=== PATIENT | female | born 1975 | race Caucasian/White ===

== ENCOUNTER 2023-10-23 16:06 | Outpatient (OUT) | payer OTHER, SELFPAY ==
--- NOTE | 2023-10-23 | MM_ITS ---
Patient Name: ASHLEY REYES MR#: [id number] : 1975 Exam Date: 10/23/2023 Ordering Doctor: DR Zac Cuello . RADIOLOGY REPORT PROCEDURE: MM TOMOSYNTHESIS SCREENING BI COMPARISON: MG MAMM SCREEN CHIARA W CAD, 08/05/2019. INDICATIONS: screening mamm Calculator Name NCI Breast Cancer Risk Assessment Tool 5 Year Breast Cancer Risk 0.90% Lifetime Breast Cancer Risk 8.90% Personal Breast Cancer No Personal Ovarian Cancer No Treatments None Family Cancers None LOCATION: [facility] BREAST COMPOSITION: Scattered areas fibroglandular density. FINDINGS: DIAGNOSTIC CATEGORY 1--NEGATIVE. NO CHANGE FROM COMPARISON ASSESSMENT. Scattered benign-appearing nodules are present. Scattered benign-appearing calcifications are present. Scattered benign-appearing lymph nodes are present. RIGHT BREAST: No significant suspicious finding. LEFT BREAST: No significant suspicious finding. RECOMMENDATIONS: ROUTINE MAMMOGRAM AND CLINICAL EVALUATION IN 12 MONTHS. PLEASE NOTE: A NORMAL MAMMOGRAM DOES NOT EXCLUDE THE POSSIBILITY OF BREAST CANCER. A CLINICALLY SUSPICIOUS PALPABLE LUMP SHOULD BE BIOPSIED. Dictated by: Reji Grimm MD on 10/24/2023 at 09:31 Approved by: Reji Grimm MD on 10/24/2023 at 09:32
== END 2023-10-23 16:07 | disposition home or self-care (01) ==
LOC: MAMMO 16:07
PROVIDERS: PCP Family Medicine; Visit Provider Family Medicine
DX: Z12.31 Encounter for screening mammogram for malignant neoplasm of breast (principal)
CPT/HCPCS: 77063; 77067

== ENCOUNTER 2023-12-15 08:05 | Outpatient (OUT) | payer OTHER, SELFPAY ==
--- NOTE | 2023-12-15 | US_ITS ---
The [address] [address] Patient Name: ASHLEY REYES MRN: [id number] date: 1975 Sex: F Assigned Patient Location: [place] Current Patient Location: [place] Accession/Order Number: [id number] Exam Date: 12/15/2023 08:12 Report Date: 12/15/2023 10:19 At the request of: SEBASTIAN PULLIAM Procedure: US renal bladder EXAM: US renal bladder HISTORY: . Urinary tract infection N39.0 . COMPARISON: None. TECHNIQUE: Carlin scale and color imaging was performed FINDINGS: Scanning of the right kidney demonstrates right kidney to measure 10.7 x 3.9 x 4.6 cm. Color-flow is noted. There is a 1.2 x 1.1 cm simple cyst involving upper pole of the right kidney. No hydronephrosis is noted. Left kidney measures 10.7 x 4.5 x 4.7 cm. Color-flow is noted. No solid renal cortical masses or hydronephrosis is noted. The bladder was incompletely distended with a volume of 112 mL. Grossly no masses are noted. Ureteral jets were noted. No post void residual was noted. US/US renal bladder IMPRESSION: 1. Normal-appearing ultrasound of the kidneys. 2. No masses noted within the bladder. Bilateral ureteral jets were noted. 3. No post void residual. Electronically authenticated by: BOUCHRA LUJAN Date: 12/15/2023 10:19
--- OUTSIDE RECORDS SUMMARY | 2023-12-15 08:07 | XMS_ITS | CCD ---
Author Name Unknown Address [address] [place] [address] Organization [facility] Care Team Providers Care Boom Stick Man Name Role Phone Sebastian Cuello MD Primary Care Provider Sebastian Cuello MD Unavailable DR SEBASTIAN CUELLO Admitting Unavailable DR SEBASTIAN CUELLO Attending Unavailable DR SEBASTIAN CUELLO Primary Care Unavailable Sebasitan Cuello MD Primary Care Provider [phone] Sebastian Cuello MD Unavailable SEBASTIAN CUELLO Primary Care Unavailable SEBASTIAN CUELLO Referring Unavailable ALON ROCA Attending Unavailable SEBASTIAN CUELLO Primary Care Unavailable ALON ROCA Referring Unavailable Allergies Allergy Classification Reported Allergen(s) Allergy Type Date of Onset Reaction(s) Facility (2 sources) Penicillins; Translations: [PENICILLINS] Drug Allergy 08-21-2019 [facility] Work Phone: (4 sources) Penicillins Drug Allergy 08-21-2019 [facility] Work Phone: (1 source) Penicillin Drug Allergy [facility] Repository Medications Completed/Discontinued Medications Medication Drug Class(es) Dates Sig (Normalized) Sig (Original) acetaminophen 325 mg oral tablet (5 sources) take 2 tablets by mouth every four hours as needed acetaminophen (TYLENOL) 325 mg tablet Take 650 mg by mouth every 4 hours as needed. 0 Active Comment on above: Take 650 mg by mouth every 4 hours as needed. [id number] 200 actuat albuterol 0.09 mg/actuat metered dose inhaler (5 sources) beta2-Adrenergic Agonist Start: 02-20-2020 take 2 puff(s) by mouth four times daily albuterol HFA (PROVENTIL HFA, VENTOLIN HFA) 90 mcg/actuation inhaler inhale 2 puffs by mouth and INTO THE LUNGS four times a day if ne... (REFER TO PRESCRIPTION NOTES). 0 02/20/2020 Active Comment on above: inhale 2 puffs by mo uth and INTO THE LUNGS four times a day if ne... (REFER TO PRESCRIPTION NOTES). aspirin 81 mg delayed release oral tablet (5 sources) Platelet Aggregation Inhibitor, Nonsteroidal Anti-inflammatory Drug aspirin, enteric coated (ASPIRIN, ENTERIC COATED) 81 mg EC tablet Take 81 mg by mouth. 0 Active Comment on above: Take 81 mg by mouth. atorvastatin 80 mg oral tablet (1 source) HMG-CoA Reductase Inhibitor Start: 08-23-2019 End: 01-18-2021 atorvastatin (LIPITOR) 80 mg tablet Take 80 mg by mouth. 0 08/23/2019 01/18/2021 Discontinued (Side Effects) Comment on above: Take 80 mg by mouth. metoprolol tartrate 25 mg oral tablet (1 source) beta-Adrenergic Alva Start: 01-22-2021 End: 03-03-2022 take 0.5 tablet by mouth every twelve hours metoprolol tartrate, short acting, (LOPRESSOR) 25 mg tablet Take 0.5 tablets by mouth every 12 hours. 60 tablet 2 01/22/2021 03/03/2022 Discontinued (Discontinued by Patient) Comment on above: Take 0.5 tablets by mouth every 12 hours. perflutren lipid microspheres (DEFINITY) 1.1 mg/mL injection (to be provided with echo procedure) (1 source) Start: 08-14-2020 End: 01-18-2021 perflutren lipid microspheres (DEFINITY) 1.1 mg/mL injection (to be provided with echo procedure) Inject 1.3 mL intravenously as needed for up to 1 dose. Instructions Administration Instructions: If no IV access, insert saline lock prior to administering contrast. Discontinue saline lock post exam. If patient has central line or IVAD, may access for administration according to line specific nursing protocol. Once exam is complete, flush line and de-access per line specific nursing protocol. Diluted IV Bolus: Dilute 1.3 ml of Definity with 8.7 ml of preservative-free saline 1.3 mL 0 08/14/2020 01/18/2021 Discontinued (Course of therapy completed) Comment on above: Inject 1.3 mL intrav enously as needed for up to 1 dose. Instructions Administration Instructions: If no IV access, insert saline lock prior to administering contrast. Discontinue saline lock post exam. If patient has central line or IVAD, may access for administration according to line specific nursing protocol. Once exam is complete, flush line and de-access per line specific nursing protocol. Diluted IV Bolus: Dilute 1.3 ml of Definity with 8.7 ml of preservative-free saline pravastatin sodium 20 mg oral tablet (1 source) HMG-CoA Reductase Inhibitor take 1 tablet by mouth once daily pravastatin (PRAVACHOL) 20 mg tablet Take 20 mg by mouth once daily. 0 Active Comment on above: Take 20 mg by mouth once daily. pregabalin 50 mg oral capsule (5 sources) take 2 tablets by mouth in the evening pregabalin (LYRICA) 50 mg capsule Take 50 mg by mouth. 1 TAB IN THE AM 2 TABS IN THE pm 0 Active Comment on above: Take 50 mg by mouth. 1 TAB IN THE AM 2 TABS IN THE pm rosuvastatin calcium 5 mg oral tablet (3 sources) HMG-CoA Reductase Inhibitor take 4 tablets by mouth once daily rosuvastatin (CRESTOR) 5 mg tablet Take 20 mg by mouth once daily. 0 Active Comment on above: Take 20 mg by mouth once daily. 125 ml sodium chloride 9 mg/ml prefilled syringe (1 source) Start: 08-05-2020 End: 01-18-2021 sodium chloride 0.9 %, flush, (BD POSIFLUSH) syringe Inject 2-10 mL intravenously as directed. For Echo procedure 10 mL 0 08/05/2020 01/18/2021 Discontinued (Course of therapy completed) Comment on above: Inject 2-10 mL intra venously as directed. For Echo procedure tiZANidine 4 mg oral tablet (1 source) Central alpha-2 Adrenergic Agonist take 1 tablet by mouth every six hours as needed tiZANidine (ZANAFLEX) 4 mg tablet Take 4 mg by mouth every 6 hours as needed. 0 Active Comment on above: Take 4 mg by mouth e very 6 hours as needed. Problems Active Problems Problem Classification Problem Date Documented Da te Episodic/Chronic Acute cerebrovascular disease (7 sources) Cerebral infarction; Translations: [Cerebral infarction due to unspecified occlusion or stenosis of unspecified carotid artery] Onset: 06-15-2020 06-15-2020 Chronic Cardiac dysrhythmias (6 sources) Cardiac arrhythmia; Translations: [Cardiac arrhythmia, unspecified] Onset: 06-15-2020 06-15-2020 Chronic Occlusion or stenosis of precerebral arteries (9 sources) Right carotid artery occlusion; Translations: [Occlusion and stenosis of right carotid artery] Onset: 01-10-2021 01-10-2021 Chronic Past or Other Problems Problem Classification Problem Date Documented Date Episodic/Chronic Other circulatory disease (5 sources) History of cerebrovascular accident; Translations: [Personal history of transient ischemic attack (TIA), and cerebral infarction without residual deficits] Onset: 01-10-2021 01-10-2021 Episodic Residual codes; unclassified (5 sources) Tobacco user; Translations: [Tobacco use] Onset: 06-15-2020 01-22-2021 Episodic Results Test Name Value Interpretation Reference Range Facility [facility] 11-21-2023 CNPN Telephone (4CQ) ---- JANIEASHLEY MOORE ([id number]) 1975 F Date Time Provider Department 11/21/23 SEBASTIAN CUELLO 4CQ During your visit today, we recorded the following information about you: Alexia Wilson 11/21/2023 11:12 AM Signed Reason for call: Ms Fairbanks called and she would like to schedule an appointment with Dr elizabeth Cross and cell number: [phone] Diagnosis:CAROTID STENOSIS Mary Grace Justin Haley Fletcher 11/26/2023 11:17 AM Signed Lvm to call back to schedule Allergies As of Date: 11/21/2023 Noted Allergy Reaction PENICILLINS 08/21/2019 4 - Hives Comments: As a child, unsure currently Date Reviewed: 03/07/2023 Reviewed by: Greer Trejo LPN - Fully Assessed Reason for Visit: Appointment [186] Prescriptions as of 11/26/2023 - pravastatin (PRAVACHOL) 20 mg tablet Take 20 mg by mouth once daily. - tiZANidine (ZANAFLEX) 4 mg tablet Take 4 mg by mouth every 6 hours as needed. - rosuvastatin (CRESTOR) 5 mg tablet Take 20 mg by mouth once daily. - acetaminophen (TYLENOL) 325 mg tablet Take 650 mg by mouth every 4 hours as needed. - albuterol HFA (PROVENTIL HFA, VENTOLIN HFA) 90 mcg/actuation inhaler inhale 2 puffs by mouth and INTO THE LUNGS four times a day if ne... (REFER TO PRESCRIPTION NOTES). - aspirin, enteric coated (ASPIRIN, ENTERIC COATED) 81 mg EC tablet Take 81 mg by mouth. - pregabalin (LYRICA) 50 mg capsule Take 50 mg by mouth. 1 TAB IN THE AM 2 TABS IN THE pm Problem List As Of Date 11/21/2023 Noted Resolved Cerebral infarction due to unspecified occlusio*06/15/2020 Cardiac arrhythmia [I49.9] 06/15/2020 Tobacco abuse [Z72.0] 06/15/2020 Stenosis of left carotid artery [I65.22] 01/10/2021 02/21/2021 Right internal carotid occlusion [I65.21] 01/10/2021 History of arterial ischemic stroke [Z86.73] 01/10/2021 Carotid artery stenosis [I65.29] 01/20/2021 02/21/2021 History of left-sided carotid endarterectomy [Z*02/21/2021 Encounter Status:Closed by ALEXIA WILSON on 11/21/23 [facility] Mika 03-07-2023 CNOV Office Visit (MARIA ESTHER) ---- ASHLEY FAIRBANKS ([id number]) 1975 F Date Time Provider Department 03/07/23 12:00 PM ALON ROCA During your visit today, we recorded the following information about you: Pulse Blood pressure 67/minute 139/78 Alon Roca MD 03/07/2023 4:46 PM Signed [facility] [place] DEPARTMENT OF VASCULAR SURGERY OUTPATIENT VISIT DATE March 07, 2023 OUTPATIENT VISIT TYPE ESTABLISHED SERVICE DATE: 03/07/2023 SERVICE TIME: 12:07 PM PRIMARY CARE PHYSICIAN: Sebastian Cuello MD HISTORY OF PRESENT ILLNESS: Ms. Fairbanks is a 47 year old female who presents today for a vascular surgery follow-up visit s/p left carotid eversion endarterectomy on 01/20/21. Patient reports mild discomfort at incision and tension headaches but otherwise feeling well. Denies any signs/symptoms of TIA/CVA. Still smoking 1 pack/week but has cut down from 1ppd. 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 Vaping Use Vaping Use: Never used Substance Use Topics Alcohol use: Not Currently Drug use: Never MEDICATIONS: pravastatin (PRAVACHOL) 20 mg tablet Take 20 mg by mouth once daily. tiZANidine (ZANAFLEX) 4 mg tablet Take 4 mg by mouth every 6 hours as needed. acetaminophen (TYLENOL) 325 mg tablet Take 650 mg by mouth every 4 hours as needed. albuterol HFA (PROVENTIL HFA, VENTOLIN HFA) 90 mcg/actuation inhaler inhale 2 puffs by mouth and INTO THE LUNGS four times a day if ne... (REFER TO PRESCRIPTION NOTES). aspirin, enteric coated (ASPIRIN, ENTERIC COATED) 81 mg EC tablet Take 81 mg by mouth. pregabalin (LYRICA) 50 mg capsule Take 50 mg by mouth. 1 TAB IN THE AM 2 TABS IN THE pm rosuvastatin (CRESTOR) 5 mg tablet Take 20 mg by mouth once daily. ALLERGIES: ALLERGIES Allergen Reactions Penicillins Hives As a child, unsure currently PHYSICAL EXAM: BP 139/78 Pulse 67 LMP 11/22/2020 (Approximate) General: Alert and oriented Integumentary: Normal color, no rash, no lesions. HEENT: No carotid bruits Cardiovascular: Normal S1 AND S2, no rubs, murmurs or gallops. No JVD., Pulse regular. Lungs: Normal breath sounds, no wheezes or crackles. Abdomen: Soft, non-tender, no rigidity. Extremities: No deformity, no edema or tenderness, no joint swelling or clubbing. Neurological: Normal cognition and motor skills. Vascular: Femoral Pulse Right: Normal - Left: Normal Diagnostic tests reviewed for today's visit: 03/07/23 Carotid US: FINDINGS -------- RIGHT SIDE Common carotid artery: Origin: PSV: 118 cm/s. EDV: 14 cm/s. Proximal: PSV: 126 cm/s. EDV: 11 cm/s. Mid: PSV: 103 cm/s. EDV: 17 cm/s. Distal: PSV: 61 cm/s. EDV: 13 cm/s. Internal carotid artery: Origin: PSV: 24 cm/s. EDV: 0 cm/s. Proximal: PSV: 0 cm/s. EDV: 0 cm/s. Mid: PSV: 0 cm/s. EDV: 0 cm/s. Distal: PSV: 0 cm/s. EDV: 0 cm/s. ICA/CCA Ratio: 0.4 External carotid artery: Proximal: PSV: 124 cm/s. EDV: 24 cm/s. Subclavian artery: Proximal: PSV: 159 cm/s. EDV: 16 cm/s. Innominate artery: PSV: 169 cm/s. EDV: 20 cm/s. Vertebral artery: PSV: 67 cm/s. EDV: 24 cm/s. LEFT SIDE Common carotid artery: Proximal: PSV: 147 cm/s. EDV: 43 cm/s. Mid: PSV: 100 cm/s. EDV: 33 cm/s. Distal: PSV: 101 cm/s. EDV: 32 cm/s. Internal carotid artery: Origin: PSV: 80 cm/s. EDV: 24 cm/s. Proximal: PSV: 90 cm/s. EDV: 24 cm/s. Mid: PSV: 183 cm/s. EDV: 71 cm/s. Distal: PSV: 142 cm/s. EDV: 45 cm/s. ICA/CCA Ratio: 1.8 External carotid artery: Proximal: PSV: 77 cm/s. EDV: 17 cm/s. Subclavian artery: Proximal: PSV: 130 cm/s. EDV: 0 cm/s. Vertebral artery: PSV: 78 cm/s. EDV: 25 cm/s. IMPRESSION Compared to prior study of 03/03/2022, No significant change. RIGHT SIDE Internal carotid artery: Occluded. Known occlusion proximal to distal. Vertebral artery: Patent and antegrade flow noted. LEFT SIDE Internal carotid artery: Elevated velocities noted but no plaque is visualized; likely normal study. Eversion endarterectomy site is widely patent. Elevated velocities noted at mid/distal vessel (more content not included)... Normal [facility] CAROTID ARTERIES [facility] 03-07-2023 US CAROTID ARTERIES [facility] Non-Invasive Vascular Laboratory [facility] F30 Carotid Duplex Bilateral/Complete Date of service/time: 03/07/2023 10:59:55 AM Name: ASHLEY FAIRBANKS Date of : 1975 Age: 47 years Gender: F Clinical Indication Follow-up study on a patient with known carotid disease and status post left carotid eversion endarterectomy 01/20/2021. TECHNIQUE -------- A carotid duplex ultrasound examination was performed, including grayscale imaging and color Doppler and spectral Doppler examination of the below mentioned arteries. FINDINGS -------- RIGHT SIDE Common carotid artery: Origin: PSV: 118 cm/s. EDV: 14 cm/s. Proximal: PSV: 126 cm/s. EDV: 11 cm/s. Mid: PSV: 103 cm/s. EDV: 17 cm/s. Distal: PSV: 61 cm/s. EDV: 13 cm/s. Internal carotid artery: Origin: PSV: 24 cm/s. EDV: 0 cm/s. Proximal: PSV: 0 cm/s. EDV: 0 cm/s. Mid: PSV: 0 cm/s. EDV: 0 cm/s. Distal: PSV: 0 cm/s. EDV: 0 cm/s. ICA/CCA Ratio: 0.4 External carotid artery: Proximal: PSV: 124 cm/s. EDV: 24 cm/s. Subclavian artery: Proximal: PSV: 159 cm/s. EDV: 16 cm/s. Innominate artery: PSV: 169 cm/s. EDV: 20 cm/s. Vertebral artery: PSV: 67 cm/s. EDV: 24 cm/s. LEFT SIDE Common carotid artery: Proximal: PSV: 147 cm/s. EDV: 43 cm/s. Mid: PSV: 100 cm/s. EDV: 33 cm/s. Distal: PSV: 101 cm/s. EDV: 32 cm/s. Internal carotid artery: Origin: PSV: 80 cm/s. EDV: 24 cm/s. Proximal: PSV: 90 cm/s. EDV: 24 cm/s. Mid: PSV: 183 cm/s. EDV: 71 cm/s. Distal: PSV: 142 cm/s. EDV: 45 cm/s. ICA/CCA Ratio: 1.8 External carotid artery: Proximal: PSV: 77 cm/s. EDV: 17 cm/s. Subclavian artery: Proximal: PSV: 130 cm/s. EDV: 0 cm/s. Vertebral artery: PSV: 78 cm/s. EDV: 25 cm/s. IMPRESSION Compared to prior study of 03/03/2022, No significant change. RIGHT SIDE Internal carotid artery: Occluded. Known occlusion proximal to distal. Vertebral artery: Patent and antegrade flow noted. LEFT SIDE Internal carotid artery: Elevated velocities noted but no plaque is visualized; likely normal study. Eversion endarterectomy site is widely patent. Elevated velocities noted at mid/distal vessel. Vertebral artery: Patent and antegrade flow noted. Technologist: Selena Lynn RVT Ordering physician: ALON ROCA Interpreting physician: Samira Larkin MD, RPBRENDON Final CC [employer] : [id number] See Link below for Image Normal [facility] COVID-19 Antigenon 2 COVID-19 Antigen Healthcare Worker?: N María Elena Reference -- María Elena Reference Negative María Elena Blank -- COVID19 Pos Results Positive results will only be called to COVID19 Det Results Providers for the following groups of patients: COVID19 Pos Results Pre-Surgical Testing, Emergency Room, and Inpatients. María Elena Blank -- SARS-CoV+SARS-CoV-2 (COVID-19) Ag [Presence] in Respiratory specimen by Rapid immunoassay Positive for SARS Antigen by ILIANA María Elena Disclaimer The María Elena SARS Antigen ILIANA does not differentiate María Elena Disclaimer between SARS-CoV and SARS-CoV-2. COVID19 Blank Space María Elena Disclaimer This test was developed and its performance María Elena Disclaimer characteristic determined by [employer] and María Elena Disclaimer validated at [facility]. This María Elena Disclaimer test has not been FDA cleared or approved. This María Elena Disclaimer test has been authorized by FDA under an Emergency Use María Elena Disclaimer Authorization (EUA). This test has been validated María Elena Disclaimer in accordance with the FDA's Guidance Document (Policy María Elena Disclaimer for Diagnostics Testing in Laboratories Certified to María Elena Disclaimer Perform High Complexity Testing under CLIA prior to María Elena Disclaimer Emergency Use Authorization for Coronavirus María Elena Disclaimer iseas during the Public Health Emergency) María Elena Disclaimer issued on February 19, 2020. This test is only authorized María Elena Disclaimer for the duration of time the declaration that María Elena Disclaimer circumstances exist justifying the authorization of María Elena Disclaimer the emergency use of in vitro diagnostic tests for María Elena Disclaimer detection of SARS-CoV-2 virus and/or diagnosis of María Elena Disclaimer COVID-19 infection under section 564(b)(1) of the María Elena Disclaimer Act, 21 U.S.C. 360bbb-3(b)(1), unless the María Elena Disclaimer authorization is terminated or revoked sooner. PERFORMED BY: [place] [phone] PATHOLOGIST DEBT MANAGEMENT COUNSELOR ANTWAN HART M.D. [facility] Comment on above: Performed By: #### S OFIAPOS, COVID-19 MARÍA ELENA #### [facility] [address] [place] [address] María Elena Ag Positiveon 11-27-19 22 María Elena Ag Positive Positive Critically abnormal Negative [facility] Comment on above: Result Comment: This is a duplicate María Elena SARS Antigen (ILIANA) result to be used for statistical tracking purpose only. PERFORMED BY: [place] [address] PATHOLOGIST DEBT MANAGEMENT COUNSELOR ANTWAN HART M.D. Performed By: #### S OFIAPOS, COVID-19 MARÍA ELENA #### [facility] [address] [place] [address] No Panel Informationon 01-13 [facility] Vital Signs Date Time Vital Sign Value Performing Clinician Mayra mclean 03-07-2023 11:52-0400 Diastolic blood pressure 78 mm[Hg] Alon Roca MD Work Phone: [facility] 03-07-2023 11:52-0400 Heart rate 67 /min Alon Roca MD Work Phone: [facility] 03-07-2023 11:52-0400 Systolic blood pressure 139 mm[Hg] Alon Roca MD Work Phone: [facility] 03-03-2022 11:55-0400 Body weight 77.11 kg Levi Santos MD Work Phone: [facility] 03-03-2022 11:55-0400 Diastolic blood pressure 63 mm[Hg] Levi Santos MD Work Phone: [facility] 03-03-2022 11:55-0400 Heart rate 64 /min Levi Santos MD Work Phone: [facility] 03-03-2022 11:55-0400 Systolic blood pressure 127 mm[Hg] Levi Santos MD Work Phone: [facility] Encounters Encounter Date Encounter Type Care Provider Facility Start: 03-07-2023 End: 03-07-2023 ambulatory SEBASTIAN CUELLO Facility:[facility] Start: 03-07-2023 End: 03-07-2023 Patient encounter procedure Alon Roca MD Work Phone: Vascular Surg Dept Comment on above: Bilateral carotid ar coral stenosis (Primary Dx) Start: 07-10-2022 Orders Only Alon major MD Work Phone: Vascular Surg Dept Comment on above: Cerebral infarction due to unspecified occlusion or stenosis of unspecified carotid artery (HCC) (Primary Dx); Bilateral carotid artery stenosis Start: 05-25-[address] SEBASTIAN CUELLO Facility : Start: 03-03-2022 End: 03-03-2022 Patient encounter procedure Levi Santos MD Work Phone: Vascular Surg Dept Comment on above: History of left-side d carotid endarterectomy (Primary Dx) Start: 01-13-2021 End: 01-13-2021 Patient encounter status Injection Rej Work Phone: [facility] Start: 01-13-2021 End: 01-13-2021 Subsequent hospital visit by physician Scan [facility] Rej Work Phone: Nuclear Medicine Comment on above: Encounter for prepro cedural cardiovascular examination [Z01.810] Procedures Date Procedure Procedure Detail Performing Clinician Start: 02-21-2021 History of carotid endarterectomy History of left-sided carotid endarterectomy Levi Santos MD Work Phone: Start: 01-13-2021 Myocardial spect multiple studies Brianna Schrader COATING ENGINEER.TORCH STRAIGHTENER AND HEATER Work Phone: Start: 08-05-2019 Mammography Levi Santos MD Work Phone: History of carotid endarterectomy History of left-sided carotid endarterectomy Levi Santos MD Work Phone: Plan of Treatment Date Care Activity Detail Author Start: 01-22-2024 DIABETES SCREEN DIABETES SCREEN [facility] Start: 01-22-2024 Diabetes Screening Diabetes Screenin g [facility] Start: 07-20-2023 Covid-19 Vaccine ( season) Covid-19 Vaccine ( season) [facility] Start: 07-20-2023 Influenza vaccination [facility] Start: 11-19-2022 DEPRESSION ASSESSMENT DEPRESSION ASS ESSMENT [facility] Start: 07-20-2022 Influenza vaccination C [facility] Start: 01-18-2022 COVID-19 VACCINE (4 - Booster for Moderna series) COVID-19 VACCINE (4 - Booster for Moderna series) [facility] Start: 09-08-2021 Mammography Mammogram Screening [facility] Start: 08-05-2020 Mammography MAMMOGRAM [facility] Start: 2019 COLOGUARD (FIT-DNA) COLOGUARD (FIT-D NA) [facility] Start: 2019 Colonoscopy COLONOSCOPY [facility] Start: 2019 COLORECTAL CANCER SCREENING COLORECTAL CANCER SCREENING [facility] Start: [address] COLONOGRAPHY [facility] Start: 2019 FECAL OCCULT BLOOD FECAL OCCULT BLOO D [facility] Start: 2019 Lipid 1996 panel - S doug or Plasma Lipid Screening [facility] Start: 2019 LIPID SCREEN LIPID SCREEN [facility] Start: 2019 SIGMOIDOSCOPY SIGMOIDOSCOPY [facility] Start: 2004 HPV TESTING HPV TESTING [facility] Start: 1995 PAP TESTING PAP TESTING [facility] Start: 1993 Urine microalbumin profile [facility] Start: 1992 HEPATITIS C SCREENING HEPATITIS C SC REENING [facility] Start: 1992 HIV SCREENING HIV SCREENING [facility] Start: 1986 Adult depression screening assessment DEPRESSION SCREENING [facility] Start: 1980 PNEUMOCOCCAL (1 - PCV) PNEUMOCOCCAL (1 - PCV) [facility] Start: 1980 Pneumococcal vaccination Pneum ococcal Vaccine (1 - PCV) [facility] Start: 1974 HEPATITIS B (1 of 3 - 3-dose series) HEPATITIS B (1 of 3 - 3-dose series) [facility] Start: 1974 Hepatitis B Vaccine (1 of 3 - 3-dose series) Hepatitis B Vaccine (1 of 3 - 3-dose series) [facility] End: 07-10-2023 US CAROTID ARTERIES [facility] US CAROTID ARTERIES [facility] Vascular Lab Routine Cerebral infarction due to unspecified occlusion or stenosis of unspecified carotid artery (HCC) Bilateral carotid artery stenosis 1 Occurrences starting 07/10/2022 until 07/10/2023 [facility] Work Phone: Comment on above: 1 Occurrences starti ng 07/10/2022 until [facility]10[facility] Payers Date Payer Category Payer Private Health Insurance [employer] A ETNA CHOICE POS II [id number] 2015-Present [phone] [address] [place] [address] POS [id number] 2015 Private Health Insurance [id number] 2015 Private Health Insurance [id number] 1974 Unknown [id number] 1959 Self-pay Social History Date Type Detail Facility Start: 08-05-2020 End: 03-07-2023 Tobacco smoking status NHIS Smokes tobacco daily [facility] History of tobacco use Cigarette Smoker [facility] Start: 08-05-2020 End: 10-29-2020 Cigarettes smoked current (pack per day) - Reported 0.5 [facility] Start: 08-05-2020 End: 03-07-2023 Tobacco use and exposure Smokeless tobacco non-user [facility] Start: 01-10-2021 End: 03-03-2022 Alcohol intake Ex-drinker (finding) [facility] Start: 1975 Sex Assigned At Female [facility] Start: 12-11-2020 End: 03-03-2022 Exposure to SARS-CoV-2 (event) Not sure [facility] Start: 03-07-2023 Tobacco Comment Smokes about a pack a week now. [facility] History of tobacco use Cigar Smoker [facility] Start: 10-29-2020 End: 01-10-2021 Tobacco use panel [facility] National Score (1-10 0), lower number is lower risk Not on file [facility] Start: 08-05-2020 Tobacco Comment quit cigarette s 2019. smokes 3 cigars a day [facility] Clinical Notes 01-10-2021 to 03-07-2023 Alon Roca MD - 03/07/2023 11:57 AM EDTChkim Santos MD - 03/03/2022 11:50 AM EDT Note Date & Type Note Facility 03-07-2023 Note HNO ID: [id number] Author: Alon Roca MD Service: ? Author Type: Physician Type: Progress Notes Filed: 03/07/2023 4:46 PM Note Text: Heart , Vascular [facility] Thoracic [place] DEPARTMENT OF VASCULAR SURGERY OUTPATIENT VISIT DATE March 07, 2023 OUTPATIENT VISIT TYPE ESTABLISHED SERVICE DATE: 03/07/2023 SERVICE TIME: 12:07 PM PRIMARY CARE PHYSICIAN: Sebastian Cuello MD HISTORY OF PRESENT ILLNESS: Ms. Fairbanks is a 47 year old female who presents today for a vascular surgery follow-up visit s/p left carotid eversion endarterectomy on 01/20/21. Patient reports mild discomfort at incision and tension headaches but otherwise feeling well. Denies any signs/symptoms of TIA/CVA. Still smoking 1 pack/week but has cut down from 1ppd. 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 Vaping Use Vaping Use: Never used Substance Use Topics Alcohol use: Not Currently Drug use: Never MEDICATIONS: pravastatin (PRAVACHOL) 20 mg tablet Take 20 mg by mouth once daily. tiZANidine (ZANAFLEX) 4 mg tablet Take 4 mg by mouth every 6 hours as needed. acetaminophen (TYLENOL) 325 mg tablet Take 650 mg by mouth every 4 hours as needed. albuterol HFA (PROVENTIL HFA, VENTOLIN HFA) 90 mcg/actuation inhaler inhale 2 puffs by mouth and INTO THE LUNGS four times a day if ne... (REFER TO PRESCRIPTION NOTES). aspirin, enteric coated (ASPIRIN, ENTERIC COATED) 81 mg EC tablet Take 81 mg by mouth. pregabalin (LYRICA) 50 mg capsule Take 50 mg by mouth. 1 TAB IN THE AM 2 TABS IN THE pm rosuvastatin (CRESTOR) 5 mg tablet Take 20 mg by mouth once daily. ALLERGIES: ALLERGIES Allergen Reactions Penicillins Hives As a child, unsure currently PHYSICAL EXAM: BP 139/78 Pulse 67 LMP 11/22/2020 (Approximate) General: Alert and oriented Integumentary: Normal color, no rash, no lesions. HEENT: No carotid bruits Cardiovascular: Normal S1 AND S2, no rubs, murmurs or gallops. No JVD., Pulse regular. Lungs: Normal breath sounds, no wheezes or crackles. Abdomen: Soft, non-tender, no rigidity. Extremities: No deformity, no edema or tenderness, no joint swelling or clubbing. Neurological: Normal cognition and motor skills. Vascular: Femoral Pulse Right: Normal - Left: Normal Diagnostic tests reviewed for today's visit: 03/07/23 Carotid US: FINDINGS -------- RIGHT SIDE Common carotid artery: Origin: PSV: 118 cm/s. EDV: 14 cm/s. Proximal: PSV: 126 cm/s. EDV: 11 cm/s. Mid: PSV: 103 cm/s. EDV: 17 cm/s. Distal: PSV: 61 cm/s. EDV: 13 cm/s. Internal carotid artery: Origin: PSV: 24 cm/s. EDV: 0 cm/s. Proximal: PSV: 0 cm/s. EDV: 0 cm/s. Mid: PSV: 0 cm/s. EDV: 0 cm/s. Distal: PSV: 0 cm/s. EDV: 0 cm/s. ICA/CCA Ratio: 0.4 External carotid artery: Proximal: PSV: 124 cm/s. EDV: 24 cm/s. Subclavian artery: Proximal: PSV: 159 cm/s. EDV: 16 cm/s. Innominate artery: PSV: 169 cm/s. EDV: 20 cm/s. Vertebral artery: PSV: 67 cm/s. EDV: 24 cm/s. LEFT SIDE Common carotid artery: Proximal: PSV: 147 cm/s. EDV: 43 cm/s. Mid: PSV: 100 cm/s. EDV: 33 cm/s. Distal: PSV: 101 cm/s. EDV: 32 cm/s. Internal carotid artery: Origin: PSV: 80 cm/s. EDV: 24 cm/s. Proximal: PSV: 90 cm/s. EDV: 24 cm/s. Mid: PSV: 183 cm/s. EDV: 71 cm/s. Distal: PSV: 142 cm/s. EDV: 45 cm/s. ICA/CCA Ratio: 1.8 External carotid artery: Proximal: PSV: 77 cm/s. EDV: 17 cm/s. Subclavian artery: Proximal: PSV: 130 cm/s. EDV: 0 cm/s. Vertebral artery: PSV: 78 cm/s. EDV: 25 cm/s. IMPRESSION Compared to prior study of 03/03/2022, No significant change. RIGHT SIDE Internal carotid artery: Occluded. Known occlusion proximal to distal. Vertebral artery: Patent and antegrade flow noted. LEFT SIDE Internal carotid artery: Elevated velocities noted but no plaque is visualized; likely normal study. Eversion endarterectomy site is widely patent. Elevated velocities noted at mid/distal vessel. Vertebral artery: Patent and antegrade flow noted. IMPRESSION: Ms. Fairbanks is a 47 year old female with known occluded LAKHWINDER s/p left carotid eversion endarterectomy on 01/20/21, stable elevated velocities but no plaque (more content not included)... [facility] 03-07-2023 History of Present illness Narrative Images from the original note were not included. Heart , Vascular [facility] Thoracic [place] DEPARTMENT OF VASCULAR SURGERY OUTPATIENT VISIT DATE March 07, 2023 OUTPATIENT VISIT TYPE ESTABLISHED SERVICE DATE: 03/07/2023 SERVICE TIME: 12:07 PM PRIMARY CARE PHYSICIAN: Sebastian Cuello MD HISTORY OF PRESENT ILLNESS: Ms. Fairbanks is a 47 year old female who presents today for a vascular surgery follow-up visit s/p left carotid eversion endarterectomy on 01/20/21. Patient reports mild discomfort at incision and tension headaches but otherwise feeling well. Denies any signs/symptoms of TIA/CVA. Still smoking 1 pack/week but has cut down from 1ppd. PAST MEDICAL HISTORY Diagnosis Date Carotid stenosis, left Cerebral aneurysm CVA (cerebrovascular accident) (HCC) 08/2019 History of DVT (deep vein thrombosis) 2019 right leg Pseudoaneurysm (HCC) 08/2019 right femoral artery Right carotid artery occlusion TIA (transient ischemic attack) age 30 PAST SURGICAL HISTORY Procedure Laterality Date APPENDECTOMY DILATION & CURETTAGE DX&/THER NONOBSTETRIC IR CAROTID CEREBRAL ANGIO (AG,EU,FV,HL,MM) 08/28/2019 PAST SURGICAL HISTORY OF 09/03/2019 right femoral pseudoaneurym repair TONSILLECTOMY AND ADENOIDECTOMY HX childhood TUBAL LIGATION HX TYMPANOSTOMY LOCAL/TOPICAL ANESTHESIA SOCIAL HISTORY Social History Tobacco Use Smoking status: Every Day Packs/day: 0.50 Types: Cigarettes Smokeless tobacco: Never Tobacco comments: Smokes about a pack a week now. Vaping Use Vaping Use: Never used Substance Use Topics Alcohol use: Not Currently Drug use: Never MEDICATIONS: pravastatin (PRAVACHOL) 20 mg tablet Take 20 mg by mouth once daily. tiZANidine (ZANAFLEX) 4 mg tablet Take 4 mg by mouth every 6 hours as needed. acetaminophen (TYLENOL) 325 mg tablet Take 650 mg by mouth every 4 hours as needed. albuterol HFA (PROVENTIL HFA, VENTOLIN HFA) 90 mcg/actuation inhaler inhale 2 puffs by mouth and INTO THE LUNGS four times a day if ne... (REFER TO PRESCRIPTION NOTES). aspirin, enteric coated (ASPIRIN, ENTERIC COATED) 81 mg EC tablet Take 81 mg by mouth. pregabalin (LYRICA) 50 mg capsule Take 50 mg by mouth. 1 TAB IN THE AM 2 TABS IN THE pm rosuvastatin (CRESTOR) 5 mg tablet Take 20 mg by mouth once daily. ALLERGIES: ALLERGIES Allergen Reactions Penicillins Hives As a child, unsure currently PHYSICAL EXAM: BP 139/78 Pulse 67 LMP 11/22/2020 (Approximate) General: Alert and oriented Integumentary: Normal color, no rash, no lesions. HEENT: No carotid bruits Cardiovascular: Normal S1 & S2, no rubs, murmurs or gallops. No JVD., Pulse regular. Lungs: Normal breath sounds, no wheezes or crackles. Abdomen: Soft, non-tender, no rigidity. Extremities: No deformity, no edema or tenderness, no joint swelling or clubbing. Neurological: Normal cognition and motor skills. Vascular: Femoral Pulse Right: Normal - Left: Normal Diagnostic tests reviewed for today's visit: 03/07/23 Carotid US: FINDINGS -------- RIGHT SIDE Common carotid artery: Origin: PSV: 118 cm/s. EDV: 14 cm/s. Proximal: PSV: 126 cm/s. EDV: 11 cm/s. Mid: PSV: 103 cm/s. EDV: 17 cm/s. Distal: PSV: 61 cm/s. EDV: 13 cm/s. Internal carotid artery: Origin: PSV: 24 cm/s. EDV: 0 cm/s. Proximal: PSV: 0 cm/s. EDV: 0 cm/s. Mid: PSV: 0 cm/s. EDV: 0 cm/s. Distal: PSV: 0 cm/s. EDV: 0 cm/s. ICA/CCA Ratio: 0.4 External carotid artery: Proximal: PSV: 124 cm/s. EDV: 24 cm/s. Subclavian artery: Proximal: PSV: 159 cm/s. EDV: 16 cm/s. Innominate artery: PSV: 169 cm/s. EDV: 20 cm/s. Vertebral artery: PSV: 67 cm/s. EDV: 24 cm/s. LEFT SIDE Common carotid artery: Proximal: PSV: 147 cm/s. EDV: 43 cm/s. Mid: PSV: 100 cm/s. EDV: 33 cm/s. Distal: PSV: 101 cm/s. EDV: 32 cm/s. Internal carotid artery: Origin: PSV: 80 cm/s. EDV: 24 cm/s. Proximal: PSV: 90 cm/s. EDV: 24 cm/s. Mid: PSV: 183 cm/s. EDV: 71 cm/s. Distal: PSV: 142 cm/s. EDV: 45 cm/s. ICA/CCA Ratio: 1.8 External carotid artery: Proximal: PSV: 77 cm/s. EDV: 17 cm/s. Subclavian artery: Proximal: PSV: 130 cm/s. EDV: 0 cm/s. Vertebral artery: PSV: 78 cm/s. EDV: 25 cm/s. IMPRESSION Compared to prior study of 03/03/2022, No significant change. RIGHT SIDE Internal carotid artery: Occluded. Known occlusion proximal to distal. Vertebral artery: Patent and antegrade flow noted. LEFT SIDE Internal carotid artery: Elevated velocities noted but no plaque is visualized; likely normal study. Eversion endarterectomy site is widely patent. Elevated velocities noted at mid/distal vessel. Vertebral artery: Patent and antegrade flow noted. IMPRESSION: Ms. Fairbanks is a 47 year old female with known occluded LAKHWINDER s/p left carotid eversion endarterectomy on 01/20/21, stable elevated velocities but no plaque noted on duplex. PLAN and RECOMMENDATIONS: -Follow up in 1 year with carotid duplex -Continue asa/statin -Stressed importance of smoking cessation Mitali Cabrera MD Vascular Surgery Fellow PGY-7 SIGNATURE: Alon Roca MD PATIENT NAME: Ashley Fairbanks DATE: March 07, 2023 TIME: 12:07 PM [facility] STAFF PHYSICIAN NOTE OF PERSONAL INVOLVEMENT IN CARE Patient is seen in consultation at the request of the above noted physician. Based on my evaluation she does not require intervention for adolfo. PLAN DISCUSSED WITH: pt See problem list I have reviewed the documentation obtained and documented by the Fellow and I have personally performed a face to face assessment of the patient and have personally participated in the mcduffie components of the visit which includes medical decision making. and have reviewed and updated the problem list as appropriate. I have personally performed a face to face assessment of the patient and have personally participated in the mcduffie components. I have discussed the case and management of the patient's care. STAFF PHYSICIAN: Alon Roca MD DATE of SERVICE: 03/07/2023 TIME of SERVICE: 4:46 PM documented in this encounter [facility] 03-03-2022 History of Present illness Narrative Images from the original note were not included. Heart , Vascular and Thoracic [place] DEPARTMENT OF VASCULAR SURGERY OUTPATIENT VISIT DATE March 03, 2022 OUTPATIENT VISIT TYPE ESTABLISHED SERVICE DATE: 03/03/2022 SERVICE TIME: 12:12 PM PRIMARY CARE PHYSICIAN: Sebastian Cuello MD, MD HISTORY OF PRESENT ILLNESS: Ms. Fairbanks is a 46 year old female who presents today for a vascular surgery follow-up visit s/p L CEA 2020. On asa/statin. No TIA/stroke. Review of Systems Neurological: Negative. All other systems reviewed and are negative. PHYSICAL EXAM: BP 127/63 Pulse 64 Wt 77.1 kg (170 lb) LMP 11/22/2020 (Approximate) BMI 25.85 kg/m Physical Exam Vitals reviewed. Constitutional: General: She is awake. Appearance: She is normal weight. Neurological: General: No focal deficit present. Mental Status: She is alert and oriented to person, place, and time. Cranial Nerves: Cranial nerves are intact. Sensory: Sensation is intact. Motor: Motor function is intact. Coordination: Coordination is intact. Gait: Gait is intact. Diagnostic tests reviewed for today's visit: Most recent imaging. Carotid duplex reveals known R ICA occlusion and L widely patent. IMPRESSION: Ms. Fairbanks is a 46 year old female doing well s/p L CEA 2020. PLAN and RECOMMENDATIONS: Continue asa/statin. F/u 1 year with carotid duplex. Medical Decision Making: Problems: Moderate: 2+ stable chronic illnesses Data: Unique test result(s) reviewed: 1 Unique test(s) ordered: 1 Risk: Moderate: Drug management Medical Decision Making Level: 4 - Moderate SIGNATURE: Levi Santos MD PATIENT NAME: Ashley Fairbanks DATE: March 03, 2022 TIME: 12:12 PM documented in this encounter [facility] 01-20-2021 History of Past i llness Narrative Problem Noted Date Resolved Date Carotid artery stenosis 01/20/2021 02/22/20 Overview: History: b/l ADOLFO, CVA, and TIA with bilateral cerebral infarcts and right ICA occlusion and >80% stenosis L ICA Assessment: s/p L CEA 01/20/2021 concern for perfusion related headache CT brain negative for acute process Plan: -Lopressor IV x1 -Start metoprolol 12.5 mg BID - goal MAPS 60-70s - CT brain w/out contrast -Asa and plavix for 30 days -Continue home statin -IS/BPH -OOB - d/c home today - RTC in 1 month with duplex Stenosis of left carotid artery 01/10/2021 02/21/2021 documented as of this encounter (statuses as of 03/03/2022) [facility] History of Past illness Narrative* Problem Noted Date Resolved Date Carotid artery stenosis 01/20/2021 02/22/20 Overview: History: b/l ADOLFO, CVA, and TIA with bilateral cerebral infarcts and right ICA occlusion and >80% stenosis L ICA Assessment: s/p L CEA 01/20/2021 concern for perfusion related headache CT brain negative for acute process Plan: -Lopressor IV x1 -Start metoprolol 12.5 mg BID - goal MAPS 60-70s - CT brain w/out contrast -Asa and plavix for 30 days -Continue home statin -IS/BPH -OOB - d/c home today - RTC in 1 month with duplex Stenosis of left carotid artery 01/10/2021 02/21/2021 documented as of this encounter (statuses as of 07/10/2022) [facility] History of Past illness Narrative* Problem Noted Date Resolved Date Carotid artery stenosis 01/20/2021 02/22/20 Overview: History: b/l ADOLFO, CVA, and TIA with bilateral cerebral infarcts and right ICA occlusion and >80% stenosis L ICA Assessment: s/p L CEA 01/20/2021 concern for perfusion related headache CT brain negative for acute process Plan: -Lopressor IV x1 -Start metoprolol 12.5 mg BID - goal MAPS 60-70s - CT brain w/out contrast -Asa and plavix for 30 days -Continue home statin -IS/BPH -OOB - d/c home today - RTC in 1 month with duplex Stenosis of left carotid artery 01/10/2021 02/21/2021 documented as of this encounter (statuses as of 03/08/2023) [facility] History of Present illness Narrative* Halima Garcias (Francisco)Francisco - 01/13/2021 10:00 AM EST RADIOLOGY SERVICE PROGRESS NOTE SERVICE DATE: 01/13/2021 SERVICE TIME: 10:07 AM PATIENT IDENTITY VERIFICATION COMPLETED USING TWO (2) STANDARD IDENTIFIERS: Name and Date of confirmed by patient verbally FALL SCREENING: Has the patient had 2 falls in the last year or 1 fall with injury or currently using an Ambulatory Assistive Device (Walker, Cane, Wheelchair, Crutches, etc.)? No PATIENT GENDER DATA: .female : No ALLERGIES: Reviewed and unchanged MEDICATIONS REVIEWED: No PATIENT RELEVANT IMPLANT DATA REVIEWED: Not Applicable CREATININE: No results found for: CREAT, EGFROTH, EGFRAA P.O.C.T. RESULTS: N/A January 13, [address] PERFORMED: No IV SITE: Ambulatory: A peripheral IV was started in the Right forearm with a Angio cath: 24 gauge. POST EXAM PIV STATUS: Discontinued PROCEDURE TYPE: NM Stress: 12mCi [id number] was administered IV for Rest Imaging at 1014 by Jacqueline MORE. 33.5 mCi [id number] was administered IV for Stress Imaging at 1114 by Francisco Delgado. ADMINISTRATION TIME: PATIENT DISCHARGED TO: Ambulatory patient, left NM department area. A Diagnostic radioactive procedure has taken place, with no further precautions necessary other than routine body substance precautions. More information regarding radiation safety can be found usingthis link: [email or web address] SIGNATURE: Francisco Delgado PATIENT NAME: Ashley Fairbanks DATE: January 13, 2021 TIME: 10:07 AM PAGER/CONTACT #: [facility] History of Past illness Narrative* Problem Noted Date Diagnosed Date Resolved Date Stenosis of left carotid artery 01/10/2021 02/21/2021 documented as of this encounter (statuses as of 09/24/2023) [facility] History of Past illness Narrative* Problem Noted Date Diagnosed Date Resolved Date Stenosis of left carotid artery 01/10/2021 02/21/2021 documented as of this encounter (statuses as of 09/24/2023) [facility] [place] [facility] Diagnosis History of left-sided carotid endarterectomy- Primary [facility]* Diagnosis Cerebral infarction due to unspecified occlusion or stenosis of unspecified carotid artery (HCC)- Primary Bilateral carotid artery stenosis Occlusion and stenosis of carotid artery without mention of cerebral infarction [facility] Diagnosis Bilateral carotid artery stenosis- Primary Occlusion and stenosis of carotid artery without mention of cerebral infarction [facility] [place] [facility] Diagnosis Encounter for preprocedural cardiovascular examination Pre-operative cardiovascular examination Cardiac arrhythmia, unspecified cardiac arrhythmia type Preop testing Preoperative examination, unspecified Bilateral carotid artery stenosis Occlusion and stenosis of carotid artery without mention of cerebral infarction [facility] encounter [facility] (narrative)* Outpatient Procedure (Routine) - Authorized Specialty Diagnoses / Procedures Referred By James ruiz Referred To Contact [facility] Diagnoses Cerebral infarction due to unspecified occlusion or stenosis of unspecified carotid artery (HCC) Bilateral carotid artery stenosis Procedures US CAROTID ARTERIES [facility] LAB DUPLEX SCAN EXTRACRANIAL ART COMPL BI STUDY Alon Roca MD [address] [place] [address] [facility] V[facility] [place] [address] [place] [address] Referral ID Status Reason Start Date Expiration Date Visits Requested Visits Authorized [id number] Authorized Auto-Generat ed Referral 07/10/2022 07/10/2023 1 1 [facility] Summary Purpose Family History No Family History Records FoundNo Family History Records FoundNo Family History Records Found Advance Directives No Advanced Directives Records FoundDocuments on File Type Date Recorded Patient Health Administrator Expl anation Advance Directive(s) 01/18/2021 10:47 AM Reason for Referral Specialty Diagnoses / Procedures Referred By James ruiz Referred To Contact MOLECULAR & FUNCTIONAL IMAGING Diagnoses Encounter for preprocedural cardiovascular examination Cardiac arrhythmia, unspecified cardiac arrhythmia type Preop testing Bilateral carotid artery stenosis Procedures NM CARDIAC PERF STRESS/PHARM MYOCARDIAL IMAGING, MULTIPLE Brianna Schrader, COATING ENGINEER.TORCH STRAIGHTENER AND HEATER [address] [facility] [address] Molecular & Functional Imaging [address] [place] [address] Referral ID Status Reason Start Date Expiration Date V isits Requested Visits Authorized [id number] Closed PCP Requested Referral 01/10/2021 02/09/2022 3 3 Additional Source Comments INFORMATION SOURCE (unrecogn ized section and content) DATE CREATED AUTHOR 02/06/2022 [facility] DATE CREATED AUTHOR AUTHOR'S ORGANIZ ATION 11/17/2022 [facility] DATE CREATED AUTHOR AUTHOR'S ORGANIZ ATION 11/27/2023 [facility] Source Comments (unrecognize d section and content) In the event this informatio n is protected by the Federal Confidentiality of Alcohol and Drug Abuse Patient Records regulations: The Federal rules restrict any use of the information to criminally investigate or prosecute any alcohol or drug abuse patient.[facility] Foundation[facility] the event this information is protected by the Federal Confidentiality of Alcohol and Drug Abuse Patient Records regulations: The Federal rules restrict any use of the information to criminally investigate or prosecute any alcohol or drug abuse patient.[facility] FoundationIn the event this information is protected by the Federal Confidentiality of Alcohol and Drug Abuse Patient Records regulations: The Federal rules restrict any use of the information to criminally investigate or prosecute any alcohol or drug abuse patient.[facility] FoundationIn the event this information is protected by the Federal Confidentiality of Alcohol and Drug Abuse Patient Records regulations: The Federal rules restrict any use of the information to criminally investigate or prosecute any alcohol or drug abuse patient.[facility] FoundationIn the event this information is protected by the Federal Confidentiality of Alcohol and Drug Abuse Patient Records regulations: The Federal rules restrict any use of the information to criminally investigate or prosecute any alcohol or drug abuse patient.[facility] Reason for Visit (unrecogniz ed section and content) Reason Comments Radiology [place] Specialty Diagnoses / Procedures Referred By Contac t Referred To Contact MOLECULAR & FUNCTIONAL IMAGING Diagnoses Encounter for preprocedural cardiovascular examination Cardiac arrhythmia, unspecified cardiac arrhythmia type Preop testing Bilateral carotid artery stenosis Procedures NM CARDIAC PERF STRESS/PHARM MYOCARDIAL IMAGING, MULTIPLE Brianna Schrader, COATING ENGINEER.TORCH STRAIGHTENER AND HEATER [address] [facility] [address] Molecular & Functional Imaging [address] [place] [address] Referral ID Status Reason Start Date Expiration Date V isits Requested Visits Authorized [id number] Closed PCP Requested Referral 01/10/2021 02/09/2022 3 3 Reason Comments Established Patient Care Teams (unrecognized sec tion and content) [employer] Stick Man Relationship Specialty Start Date End Date Sebastian Cuello MD [address] [place] [phone] PCP - General Family Practice 06/08/20 Sebastian Cuello MD [address] [phone] Referring Family Practice 06/08/20 Boom Stick Man Relationship Specialty Start Date End Date Sebastian Cuello MD [address] [id number] PCP - General Family Practice 06/08/20 Sebsatian Cuello MD [address] [place] [address] Referring Family Practice 06/08/20 [employer] Relationship Specialty Start Date End Date Sebastian Cuello MD PCP - General Family Medicine 06/08/20 Sebastian Cuello MD Referring Family Medicine 06/08/20 [employer] Relationship Specialty Start Date End Date Sebastian Cuello MD PCP - General Family Medicine 06/08/20 Sebastian Cuello MD Referring Family Medicine 06/08/20 [employer] Relationship Specialty Start Date End Date Sebastian Cuello MD PCP - General Family Medicine 06/08/20 Sebastian Cuello MD Referring Family Medicine 06/08/20 FOR RECORDS PERTAINING TO PATIENTS WHO ARE OR HAVE BEEN ENROLLED IN A CHEMICAL DEPENDENCY/SUBSTANCEABUSE PROGRAM, SOME INFORMATION MAY BE OMITTED. This clinical summary was aggregated from multiple sources. Caution should be exercised in using it in the provision of clinical care. This summary normalizes information from multiple sources, and as a consequence, information in this document may materially change the coding, format and clinical context of patient data. In addition, data may be omitted in some cases. CLINICAL DECISIONS SHOULD BE BASED ON THE PRIMARY CLINICAL RECORDS. [facility] [address] [facility]. provides no warranty or guarantee of the accuracy or completeness of information in this document.
== END 2023-12-15 08:06 | disposition home or self-care (01) ==
LOC: US 08:05
PROVIDERS: PCP Family Medicine; Visit Provider Family Medicine
DX: N39.0 Urinary tract infection, site not specified (principal)
CPT/HCPCS: 76770

== ENCOUNTER 2024-11-04 06:09 | Outpatient (OUT) | payer OTHER, SELFPAY ==
--- OUTSIDE RECORDS SUMMARY | 2024-11-04 06:11 | XMS_ITS | CCD ---
Author Organization [facility] Care Team Providers Care Gallery Or Museum Technician Name Role Phone Sebastian Cuello MD Primary Care Provider Sebastian Cuello MD Unavailable DR SEBASTIAN CUELLO Admitting Unavailable DR SEBASTIAN CUELLO Attending Unavailable DR SEBASTIAN CUELLO Primary Care Unavailable Sebastian Cuello MD Primary Care Provider [id number] Sebastian Cuello MD Unavailable Sebastian Cuello MD Primary Care Provider SEBASTIAN CUELLO Primary Care Unavailable ALON JOHNSON Attending Unavailable SEBASTIAN CUELLO Primary Care Unavailable ALON JOHNSON Referring Unavailable Allergies Allergy Classification Reported Allergen(s) Allergy Type Date of Onset Reaction(s) Facility (2 sources) Penicillins; Translations: [PENICILLINS] Drug Allergy 08-21-2019 [facility] Work Phone: (5 sources) Penicillins Drug Allergy 08-21-2019 [facility] Work Phone: (1 source) Penicillin Drug Allergy [facility] [place] Repository Medications Current Medications Medication Drug Class(es) Dates Sig (Normalized) Sig (Original) acetaminophen 325 mg oral tablet (6 sources) take 2 tablets by mouth every four hours as needed acetaminophen (TYLENOL) 325 mg tablet Take 650 mg by mouth every 4 hours as needed. 0 Active Comment on above: Take 650 mg by mouth every 4 hours as needed. [id number] 200 actuat albuterol 0.09 mg/actuat metered dose inhaler (6 sources) beta2-Adrenergic Agonist Start: 02-20-2020 take 2 [...] aspirin 81 mg delayed release oral tablet (6 sources) Platelet Aggregation Inhibitor, Nonsteroidal Anti-inflammatory Drug aspirin, enteric coated (ASPIRIN, ENTERIC COATED) 81 mg EC tablet Take 81 mg by mouth. 0 Active Comment on above: Take 81 mg by mouth. pravastatin sodium 20 mg oral tablet (2 sources) HMG-CoA Reductase Inhibitor take 1 tablet by mouth once daily pravastatin (PRAVACHOL) 20 mg tablet Take 20 mg by mouth once daily. 0 Active Comment on above: Take 20 mg by mouth once daily. pregabalin 50 mg oral capsule (6 sources) take 2 tablets by mouth in the evening pregabalin (LYRICA) 50 mg capsule Take 50 mg by mouth. 1 TAB IN THE AM 2 TABS IN THE pm 0 Active Comment on above: Take 50 mg by mouth. 1 TAB IN THE AM 2 TABS IN THE pm rosuvastatin calcium 5 mg oral tablet (4 sources) HMG-CoA Reductase Inhibitor take 4 tablets by mouth once daily rosuvastatin (CRESTOR) 5 mg tablet Take 20 mg by mouth once daily. 0 Active Comment on above: Take 20 mg by mouth once daily. tiZANidine 4 mg oral tablet (2 sources) Central alpha-2 Adrenergic Agonist take 1 tablet by mouth every six hours as needed tiZANidine (ZANAFLEX) 4 mg tablet Take 4 mg by mouth every 6 hours as needed. 0 Active Comment on above: Take 4 mg by mouth e very 6 hours as needed. Completed/Discontinued Medications Medication Drug Class(es) Dates Sig (Normalized) Sig (Original) atorvastatin 80 mg oral tablet (1 source) [...] Definity with 8.7 ml of preservative-free saline 125 ml sodium chloride 9 mg/ml prefilled syringe (1 source) Start: 08-05-2020 End: 01-18-2021 sodium chloride 0.9 %, flush, (BD POSIFLUSH) syringe Inject 2-10 mL intravenously as directed. For Echo procedure 10 mL 0 08/05/2020 01/18/2021 Discontinued (Course of therapy completed) Comment on above: Inject 2-10 mL intra venously as directed. For Echo procedure Problems Active Problems Problem Classification Problem Date Documented Da te Episodic/Chronic Acute cerebrovascular disease (7 sources) Cerebral infarction; Translations: [Cerebral infarction due to unspecified occlusion or stenosis of unspecified carotid artery] Onset: 06-15-2020 06-15-2020 Chronic Cardiac dysrhythmias (7 sources) Cardiac arrhythmia; Translations: [Cardiac arrhythmia, unspecified] Onset: 06-15-2020 06-15-2020 Chronic Occlusion or stenosis of precerebral arteries (13 sources) Right carotid artery occlusion; Translations: [Occlusion and stenosis of right carotid artery] Onset: 01-10-2021 Resolved: 02-21-2021 01-10-2021 Chronic Past or Other Problems Problem Classification Problem Date Documented Date Episodic/Chronic Other circulatory disease (6 sources) History of cerebrovascular accident; Translations: [Personal history of transient ischemic attack (TIA), and cerebral infarction without residual deficits] Onset: 01-10-2021 01-10-2021 Episodic Residual codes; unclassified (6 sources) Tobacco user; Translations: [Tobacco use] Onset: 06-15-2020 01-22-2021 Episodic Results Test Name Value Interpretation Reference Range Facility OV 03-12-2024 CNOV Office Visit (VASSMILEYN) ASHLEY FAIRBANKS ([id number]) 1975 F Date Time Provider Department 03/12/24 12:15 PM ALON JOHNSON During your visit today, we recorded the following information about you: Pulse Blood pressure 72/minute 118/72 Alon Johnson MD 03/12/2024 1:21 PM [facility] DEPARTMENT OF VASCULAR SURGERY OUTPATIENT VISIT DATE March 12, 2024 OUTPATIENT VISIT TYPE ESTABLISHED SERVICE DATE: 03/12/2024 SERVICE TIME: 1:18 PM PRIMARY CARE PHYSICIAN: Sebastian Cuello MD HISTORY OF PRESENT ILLNESS: Ms. Fairbanks is a 48 year old female who presents today for a vascular surgery follow-up visit of her carotid disease . PAST MEDICAL HISTORY Diagnosis Date Carotid stenosis, left Cerebral aneurysm CVA (cerebrovascular accident) ([facility]) 08/2019 History of DVT (deep vein thrombosis) 2019 right leg Pseudoaneurysm ([facility]) 08/2019 right femoral artery Right carotid artery occlusion TIA (transient ischemic attack) age 30 PAST SURGICAL HISTORY Procedure Laterality Date APPENDECTOMY DILATION AND CURETTAGE DXAND/THER NONOBSTETRIC IR CAROTID CEREBRAL ANGIO (AG,EU,FV,HL,MM,UN) 08/28/2019 PAST SURGICAL HISTORY OF 09/03/2019 right femoral pseudoaneurym repair TONSILLECTOMY AND ADENOIDECTOMY HX childhood TUBAL LIGATION HX TYMPANOSTOMY LOCAL/TOPICAL ANESTHESIA SOCIAL HISTORY Social History Tobacco Use Smoking status: Every Day Packs/day: .5 Types: Cigarettes Smokeless tobacco: Never Tobacco comments: [...] a child, unsure currently PHYSICAL EXAM: BP 118/72 Pulse 72 LMP 11/22/2020 (Approximate) nad Diagnostic tests reviewed for today's visit: Most recent imaging shows widely carotid on left. Pt has right known carotid occlusion IMPRESSION: Ms. Fairbanks is a 48 year old female with carotid disease . PLAN and RECOMMENDATIONS: F/u 1 year with us carotid SIGNATURE: Alon Johnson MD PATIENT NAME: Ashley Fairbanks DATE: March 12, 2024 TIME: 1:18 PM Referring Provider: SELF [[id number]] Allergies As of Date: 03/12/2024 Noted Allergy Reaction PENICILLINS 08/21/2019 4 - Hives Comments: As a child, unsure currently Date Reviewed: 03/07/2023 Reviewed by: Greer Trejo LPN - Fully Assessed Reason for Visit: Established Patient [175] Primary Visit Diagnosis:Bilateral carotid artery stenosis [I65.23] Prescriptions as of 03/12/2024 - pravastatin (PRAVACHOL) 20 mg tablet Take [...] THE pm Problem List As Of Date 03/12/2024 Noted Resolved Cerebral infarction due to unspecified occlusio*06/15/2020 Cardiac arrhythmia [I49.9] 06/15/2020 Tobacco abuse [Z72.0] 06/15/2020 Stenosis of left carotid artery [I65.22] 01/10/2021 02/21/2021 Right internal carotid occlusion [I65.21] 01/10/2021 History of arterial ischemic stroke [Z86.73] 01/10/2021 Carotid artery stenosis [I65.29] 01/20/2021 02/21/2021 History of left-sided carotid endarterectomy [Z*02/21/2021 Encounter Status:Closed by ALON JOHNSON on 03/12/24 [facility] CAROTID ARTERIES [facility] 03-12-2024 US CAROTID [facility]ERIES [facility] Non-Invasive Vascular Laboratory [facility] F30 Carotid Duplex Bilateral/Complete Date of service/time: 03/12/2024 10:33:48 AM Name: ASHLEY FAIRBANKS Date of : 1975 Age: 48 years Gender: F Clinical Indication Follow-up study on a patient with known carotid disease and left carotid artery eversion endarterectomy 01/20/2021. TECHNIQUE -------- A carotid duplex ultrasound examination was performed, including grayscale imaging and color Doppler and spectral Doppler examination of the below mentioned arteries. FINDINGS -------- RIGHT SIDE Common carotid artery: Origin: PSV: 110 cm/s. EDV: 11 cm/s. Proximal: PSV: 120 cm/s. EDV: 13 cm/s. Mid: PSV: 85 cm/s. EDV: 12 cm/s. Distal: PSV: 55 cm/s. EDV: 8 cm/s. Mild heterogeneous plaque at distal. Internal carotid artery: Origin: PSV: 31 cm/s. EDV: 0 cm/s. Proximal: PSV: 0 cm/s. EDV: 0 cm/s. Mid: PSV: 0 cm/s. EDV: 0 cm/s. Distal: PSV: 0 cm/s. EDV: 0 cm/s. ICA/CCA Ratio: 0.6 External carotid artery: Proximal: PSV: 92 cm/s. EDV: 15 cm/s. Subclavian artery: Origin: PSV: 150 cm/s. EDV: 11 cm/s. Innominate artery: PSV: 177 cm/s. EDV: 12 cm/s. Vertebral artery: PSV: 55 cm/s. EDV: 18 cm/s. LEFT SIDE Common carotid artery: Proximal: PSV: 129 cm/s. EDV: 34 cm/s. Mid: PSV: 105 cm/s. EDV: 28 cm/s. Distal: PSV: 93 cm/s. EDV: 35 cm/s. Internal carotid artery: Origin: PSV: 62 cm/s. EDV: 26 cm/s. Proximal: PSV: 101 cm/s. EDV: 34 cm/s. Mid: PSV: 119 cm/s. EDV: 45 cm/s. Distal: PSV: 117 cm/s. EDV: 48 cm/s. ICA/CCA Ratio: 1.3 External carotid artery: Proximal: PSV: 62 cm/s. EDV: 11 cm/s. Subclavian artery: Proximal: PSV: 86 cm/s. EDV: 0 cm/s. Vertebral artery: PSV: 64 cm/s. EDV: 20 cm/s. IMPRESSION Compared to prior study of 03/07/2023, no change. RIGHT SIDE Common carotid artery: Plaque visualized without evidence of hemodynamically significant stenosis. Internal carotid artery: Occluded. Known occlusion from proximal to distal. Vertebral artery: Patent and antegrade flow noted. LEFT SIDE Internal carotid artery: Elevated velocities noted from mid to distal but no plaque is visualized. Elevated velocities may be due to contraside occlusion. Vertebral artery: Patent and antegrade flow noted. Technologist: Shonna Uribe RVT Ordering physician: ALON JOHNSON Interpreting physician: Kun Marin MD, RPVI Final CC [employer] [facility] Image : [id number] [email or web address] See Link below for Image Normal [facility] Bi 11-21-2023 CNPN Telephone (4CQ) ASHLEY FAIRBANKS ([id number]) 1975 F Date Time Provider Department 11/21/23 SEBASTIAN CUELLO 4CQ During your visit today, we recorded the following information about you: Alexia Wilson 11/21/2023 11:12 AM Signed Reason for call: Ms Fairbanks called and she would like to schedule an appointment with Dr johnson [place] and cell number: [phone] Diagnosis:CAROTID STENOSIS Alexia Zarate Rosetta 11/26/2023 11:17 AM Signed Lvm to call [...] Encounter Status:Closed by ALEXIA WILSON on 11/21/23 [facility] COVID-19 Antigenon 2 COVID-19 Antigen Healthcare Worker?: Yong Mi Reference María Elena Reference Negative María Elena Blank COVID19 Pos Results Positive results will only be called to COVID19 Det Results Providers for the following groups of patients: COVID19 Pos Results Pre-Surgical Testing, Emergency Room, and Inpatients. María Elena Blank SARS-CoV+SARS-CoV-2 (COVID-19) Ag [Presence] in Respiratory specimen by Rapid immunoassay Positive for SARS Antigen by ILIANA María Elena Disclaimer The María Elena SARS Antigen ILIANA does not differentiate María Elena Disclaimer between SARS-CoV and SARS-CoV-2. COVID19 Blank Space María Elena Disclaimer This test was developed and its performance María Elena Disclaimer characteristic determined by [employer] and María Elena Disclaimer validated at [facility]. This María Elena Disclaimer test [...] Use Authorization for Coronavirus María Elena Disclaimer is during the Public Health Emergency) María Elena [...] is terminated or revoked sooner. PERFORMED BY: [place] [id number] PATHOLOGIST LOSS PREVENTION RESEARCH ENGINEER ANTWAN HART M.D. Normal [facility] Comment on above: Performed By: #### S OFIAPOS, COVID-19 MARÍA ELENA #### [facility] [address] [place] [address] María Elena Ag Positiveon 11-27-19 22 María Elena Ag Positive Positive Critically abnormal Negative [facility] Comment on above: Result Comment: This is a duplicate María Elena SARS Antigen (ILIANA) result to be used for statistical tracking purpose only. PERFORMED BY: [place] [id number] PATHOLOGIST LOSS PREVENTION RESEARCH ENGINEER ANTWAN HART M.D. Performed By: #### S OFIAPOS, COVID-19 MARÍA ELENA #### [facility] [address] [place] [address] No Panel Informationon 01-13 [facility] Vital Signs Date Time Vital Sign Value Performing Clinician Mayra mclean 03-12-2024 11:35-0400 Diastolic blood pressure 72 mm[Hg] Alon Johnson MD Work Phone: [facility] 03-12-2024 11:35-0400 Heart rate 72 /min Alon Johnson MD Work Phone: [facility] 03-12-2024 11:35-0400 Systolic blood pressure 118 mm[Hg] Alon Johnson MD Work Phone: [facility] 03-07-2023 11:52-0400 Diastolic blood pressure 78 mm[Hg] Alon Johnson MD Work Phone: [facility] 03-07-2023 11:52-0400 Heart rate 67 /min Alon Johnson MD Work Phone: [facility] 03-07-2023 11:52-0400 Systolic blood pressure 139 mm[Hg] Alon Johnson MD Work Phone: [facility] 03-03-2022 11:55-0400 Body weight 77.11 kg Levi Santos MD Work Phone: [facility] 03-03-2022 11:55-0400 Diastolic blood pressure 63 mm[Hg] Levi Santos MD Work Phone: [facility] 03-03-2022 11:55-0400 Heart rate 64 /min Levi Santos MD Work Phone: [facility] 03-03-2022 11:55-0400 Systolic blood pressure 127 mm[Hg] Levi Santos MD Work Phone: [facility] Encounters Encounter Date Encounter Type Care Provider Facility Start: 03-12-2024 End: 03-12-2024 ambulatory SEBASTIAN CUELLO Facility:[facility] Start: 03-12-2024 End: 03-12-2024 Patient encounter procedure Alon Johnson MD Work Phone: Vascular Surg Dept Comment on above: Bilateral carotid ar coral stenosis (Primary Dx) Start: 03-07-2023 End: 03-07-2023 Patient encounter procedure Alon Johnson MD Work Phone: Vascular Surg Dept Comment [...] Patient encounter status Injection Rej Work Phone: [facility] Start: 01-13-2021 End: 01-13-2021 Subsequent hospital visit by physician Scan Nm [facility] Rej Work Phone: Nuclear Medicine Comment on above: Encounter for prepro cedural cardiovascular examination [Z01.810] Procedures Date Procedure Procedure Detail Performing Clinician Start: 02-21-2021 History of carotid endarterectomy History of left-sided carotid endarterectomy Levi Santos MD Work Phone: Start: 01-13-2021 Myocardial spect multiple studies Brianna Schrader APRN.MARKETING CONTENT COORDINATOR Work Phone: Start: 08-05-2019 Mammography Levi Santos MD Work Phone: History of carotid endarterectomy History of left-sided carotid endarterectomy Levi Santos MD Work Phone: Plan of Treatment Date Care Activity Detail Author Start: 07-20-2024 Influenza vaccination Influenz a Vaccine (Season Ended) [facility] Start: 01-22-2024 [facility] Start: 01-22-2024 Diabetes Screening Diabetes Screenin g [facility] Start: 11-19-2023 Behavioral Health Screening Behavioral Health Screening [facility] Start: 07-20-2023 Covid-19 Vaccine ( season) Covid-19 Vaccine ( season) [facility] Start: 07-20-2023 Influenza vaccination [facility] Start: 11-19-2022 DEPRESSION ASSESSMENT DEPRESSION ASS ESSMENT [facility] Start: 07-20-2022 Influenza vaccination [facility] Start: 01-18-2022 COVID-19 VACCINE (4 - Booster for Moderna series) COVID-19 VACCINE (4 - Booster for Moderna series) [facility] Start: 09-08-2021 Mammography Mammogram Screening [facility] Start: 09-08-2021 Screening for malign ant neoplasm of breast Mammogram Screening [facility] Start: 08-05-2020 Mammography MAMMOGRAM [facility] Start: 2019 COLOGUARD (FIT-DNA) COLOGUARD (FIT-D NA) [facility] Start: 2019 Colonoscopy COLONOSCOPY [facility] Start: 2019 COLORECTAL CANCER SCREENING COLORECTAL CANCER SCREENING [facility] Start: [address] COLONOGRAPHY [facility] Start: 2019 FECAL OCCULT BLOOD FECAL OCCULT BLOO D [facility] Start: 2019 Lipid 1996 panel - S doug or Plasma Lipid Screening [facility] Start: 2019 Lipid panel Lipid Screening [facility] Start: 2019 LIPID SCREEN LIPID SCREEN [facility] Start: 2019 Screening for malign ant neoplasm of colon [facility] Start: 2019 SIGMOIDOSCOPY SIGMOIDOSCOPY [facility] Start: 2004 HPV TESTING HPV TESTING [facility] Start: 2004 Screening for malign ant neoplasm of cervix HPV Testing [facility] Start: 1995 PAP TESTING PAP TESTING [facility] Start: 1995 Screening for malign ant neoplasm of cervix Pap Testing [facility] Start: 1993 Hepatitis B Vaccine (1 of 3 - 19+ 3-dose series) Hepatitis B Vaccine (1 of 3 - 19+ 3-dose series) [facility] Start: 1993 Urine microalbumin profile [facility] Start: 1992 HEPATITIS C SCREENING HEPATITIS C [facility] Start: 1992 Hepatitis C screening Hepatitis C [facility] Start: 1992 HIV SCREENING HIV SCREENING [facility] Start: 1992 HIV screening HIV Screening [facility] Start: 1986 Adult depression screening assessment DEPRESSION SCREENING [facility] Start: 1980 PNEUMOCOCCAL (1 - PCV) PNEUMOCOCCAL (1 - PCV) [facility] Start: 1980 Pneumococcal vaccination [facility] Start: 1974 HEPATITIS B (1 of 3 - 3-dose series) HEPATITIS B (1 of 3 - 3-dose series) [facility] Start: 1975 Hepatitis B Vaccine (1 of 3 - 3-dose series) Hepatitis B Vaccine (1 of 3 - 3-dose series) [facility] End: 07-10-2023 US CAROTID ARTER[facility] US CAROTID [facility] Vascular Lab Routine Cerebral infarction due to unspecified occlusion or stenosis of unspecified carotid artery (HCC) Bilateral carotid artery stenosis 1 Occurrences starting 07/10/2022 until 07/10/2023 [facility] Work Phone: Comment on above: 1 Occurrences starti ng 07/10/2022 until 07/10/2023 [facility] c Payers Date Payer Category Payer Unknown [id number] 2015 Private Health Insurance [employer] A ETNA CHOICE POS II [id number] 2015-Present [phone] [id number] [place] [address] POS [id number] 2015 Private Health Insurance [id number] 1975 Unknown [id number] 1959 Self-pay Social History Date Type Detail Facility Start: 08-05-2020 End: 03-07-2023 Tobacco smoking status NHIS Smokes tobacco daily [facility] History of tobacco use Cigarette Smoker [facility] Start: 08-05-2020 End: 03-12-2024 Cigarettes smoked current (pack per day) - Reported 0.5 [facility] Start: 08-05-2020 End: 03-07-2023 Tobacco use and exposure Smokeless tobacco non-user [facility] Start: 03-03-2022 End: 03-12-2024 Alcohol intake Ex-drinker (finding) [facility] Start: 1975 Sex Assigned At Female [facility] Start: 12-11-2020 End: 03-03-2022 Exposure to SARS-CoV-2 (event) Not sure [facility] Start: 03-07-2023 Tobacco Comment Smokes about a pack a week now. [facility] History of tobacco use Cigar Smoker [facility] Start: 01-10-2021 End: 03-12-2024 Tobacco use panel [facility] National Score (1-10 0), lower number is lower risk Not on file [facility] Start: 08-05-2020 Tobacco Comment quit cigarette s 2019. smokes 3 cigars a day [facility] Clinical Notes 01-10-2021 to 03-12-2024 Alon Johnson MD - 03/12/2024 1:18 PM Geoff Johnson MD - 03/07/2023 11:57 AM Gerson Santos MD - 03/03/2022 11:50 AM EDT Note Date & Type Note Facility 03-12-2024 Note HNO ID: [id number] Author: ALON JOHNSON MD Service: ? Author Type: Physician Type: Progress Notes Filed: 03/12/2024 13:21 Note Text: [facility] DEPARTMENT OF VASCULAR SURGERY OUTPATIENT VISIT DATE March 12, 2024 OUTPATIENT VISIT TYPE ESTABLISHED SERVICE DATE: 03/12/2024 SERVICE TIME: 1:18 PM PRIMARY CARE PHYSICIAN: Sebastian Cuello MD HISTORY OF PRESENT ILLNESS: Ms. Fairbanks is a 48 year old female who presents today for a vascular surgery follow-up visit of her carotid disease . PAST MEDICAL HISTORY Diagnosis Date Carotid stenosis, left Cerebral aneurysm CVA (cerebrovascular accident) ([facility]) 08/2019 History of DVT (deep vein thrombosis) 2019 right leg Pseudoaneurysm ([facility]) 08/2019 right femoral artery Right carotid artery occlusion TIA (transient ischemic attack) age 30 PAST SURGICAL HISTORY Procedure Laterality Date APPENDECTOMY DILATION AND CURETTAGE DXAND/THER NONOBSTETRIC IR CAROTID CEREBRAL ANGIO (AG,EU,FV,HL,MM,UN) 08/28/2019 PAST SURGICAL HISTORY OF 09/03/2019 right femoral pseudoaneurym repair TONSILLECTOMY AND ADENOIDECTOMY HX childhood TUBAL LIGATION HX TYMPANOSTOMY LOCAL/TOPICAL ANESTHESIA SOCIAL HISTORY Social History Tobacco Use Smoking status: Every Day Packs/day: .5 Types: Cigarettes Smokeless tobacco: Never Tobacco comments: [...] a child, unsure currently PHYSICAL EXAM: BP 118/72 Pulse 72 LMP 11/22/2020 (Approximate) nad Diagnostic tests reviewed for today's visit: Most recent imaging shows widely carotid on left. Pt has right known carotid occlusion IMPRESSION: Ms. Fairbanks is a 48 year old female with carotid disease . PLAN and RECOMMENDATIONS: F/u 1 year with us carotid SIGNATURE: Alon Johnson MD PATIENT NAME: Ashley Fairbanks DATE: March 12, 2024 TIME: 1:18 PM [facility] 03-12-2024 History of Present illness Narrative Images from the original note were not included. [facility] DEPARTMENT OF VASCULAR SURGERY OUTPATIENT VISIT DATE March 12, 2024 OUTPATIENT VISIT TYPE ESTABLISHED SERVICE DATE: 03/12/2024 SERVICE TIME: 1:18 PM PRIMARY CARE PHYSICIAN: Sebastian Cuello MD HISTORY OF PRESENT ILLNESS: Ms. Fairbanks is a 48 year old female who presents today for a vascular surgery follow-up visit of her carotid disease . PAST MEDICAL HISTORY Diagnosis Date Carotid stenosis, left Cerebral aneurysm CVA (cerebrovascular accident) ([facility]) 08/2019 History of DVT (deep vein thrombosis) 2019 right leg Pseudoaneurysm ([facility]) 08/2019 right femoral artery Right carotid artery occlusion TIA (transient ischemic attack) age 30 PAST SURGICAL HISTORY Procedure Laterality Date APPENDECTOMY DILATION & CURETTAGE DX&/THER NONOBSTETRIC IR CAROTID CEREBRAL ANGIO (AG,EU,FV,HL,MM,UN) 08/28/2019 PAST SURGICAL HISTORY OF 09/03/2019 right femoral pseudoaneurym repair TONSILLECTOMY AND ADENOIDECTOMY HX childhood TUBAL LIGATION HX TYMPANOSTOMY LOCAL/TOPICAL ANESTHESIA SOCIAL HISTORY Social History Tobacco Use Smoking status: Every Day Packs/day: .5 Types: Cigarettes Smokeless tobacco: Never Tobacco comments: [...] a child, unsure currently PHYSICAL EXAM: BP 118/72 Pulse 72 LMP 11/22/2020 (Approximate) nad Diagnostic tests reviewed for today's visit: Most recent imaging shows widely carotid on left. Pt has right known carotid occlusion IMPRESSION: Ms. Fairbanks is a 48 year old female with carotid disease . PLAN and RECOMMENDATIONS: F/u 1 year with us carotid SIGNATURE: Alon Johnson MD PATIENT NAME: Ashley Fairbanks DATE: March 12, 2024 TIME: 1:18 PM documented in this encounter [facility] 03-07-2023 History of Present illness Narrative Images from the original note were not included. [facility] DEPART[facility] OF VASCULAR SURGERY OUTPATIENT VISIT DATE [...] stenosis, left Cerebral aneurysm [facility] [facility]) 08/2019 History of DVT (deep vein thrombosis) 2018 right leg Pseudoaneurysm ([facility]) 08/2019 right femoral artery Right carotid artery [...] MD Vascular Surgery Fellow PGY-7 SIGNATURE: Alon Johnson MD PATIENT NAME: Ashley Fairbanks DATE: March 07, 2023 TIME: 12:07 PM [facility] STAFF PHYSICIAN NOTE OF PERSONAL INVOLVEMENT [...] of the patient's care. STAFF PHYSICIAN: Alon Johnson MD DATE of SERVICE: 03/07/2023 TIME of SERVICE: 4:46 PM documented in this encounter [facility] 03-03-2022 History of Present illness Narrative Images from the original note were not included. [facility] DEPARTMENT OF VASCULAR SURGERY OUTPATIENT VISIT DATE [...] TIME: 12:12 PM documented in this encounter [facility] 01-20-2021 History of Past i llness Narrative Problem Noted Date Resolved Date Carotid artery stenosis 01/20/2021 02/22/20 21 Overview: History: b/l ADOLFO, CVA, and TIA [...] of this encounter (statuses as of 03/03/2022) [facility] History of Past illness Narrative* Problem Noted [...] of this encounter (statuses as of 07/10/2022) [facility] History of Past illness Narrative* Problem Noted [...] of this encounter (statuses as of 03/08/2023) [facility] History of Present illness Narrative* Halima Garcias (Tech), Tech - 01/13/2021 10:00 AM EST RADIOLOGY SERVICE [...] STATUS: Discontinued PROCEDURE TYPE: NM Stress: 12mCi [id number] was administered IV for Rest Imaging at 1014 by Jacqueline MORE. 33.5 mCi [id number] was administered IV for Stress Imaging at 1114 by Francisco Delgado. ADMINISTRATION TIME: PATIENT DISCHARGED TO: Ambulatory patient, left [place] department area. A Diagnostic radioactive procedure has taken place, with no further precautions necessary other than routine body substance precautions. More information regarding radiation safety can be found usingthis link: [email or web address] SIGNATURE: Francisco Delgado PATIENT NAME: Ashley Fairbanks DATE: January 13, 2021 TIME: 10:07 AM PAGER/CONTACT #: [facility] of Past illness Narrative* Problem Noted Date Diagnosed Date Resolved Date Stenosis of left carotid artery 01/10/2021 02/21/2021 documented as of this encounter (statuses as of 09/24/2023) [facility] of Past illness Narrative* Problem Noted Date Diagnosed Date Resolved Date Stenosis of left carotid artery 01/10/2021 02/21/2021 documented as of this encounter (statuses as of 09/24/2023) [facility] note* Diagnosis History of left-sided carotid endarterectomy- Primary documented in this encounter [facility] note* Diagnosis Cerebral infarction due to unspecified occlusion or stenosis of unspecified carotid artery (HCC)- Primary Bilateral carotid artery stenosis Occlusion and stenosis of carotid artery without mention of cerebral infarction documented in this encounter [facility] note* Diagnosis Bilateral carotid artery stenosis- Primary Occlusion and stenosis of carotid artery without mention of cerebral infarction documented in this encounter [facility] note* Diagnosis Encounter for preprocedural cardiovascular examination Pre-operative cardiovascular examination Cardiac arrhythmia, unspecified cardiac arrhythmia type Preop testing Preoperative examination, unspecified Bilateral carotid artery stenosis Occlusion and stenosis of carotid artery without mention of cerebral infarction documented in this encounter [facility] note* Diagnosis Bilateral carotid artery stenosis- Primary Occlusion and stenosis of carotid artery without mention of cerebral infarction [facility] Outpatient Procedure (Routine) - Authorized Specialty Diagnoses / Procedures Referred By James ruiz Referred To Contact [facility] Diagnoses Cerebral infarction due to unspecified occlusion or stenosis of unspecified carotid artery (HCC) Bilateral carotid artery stenosis Procedures US CAROTID ARTERIES CHIARA VAS LAB DUPLEX SCAN EXTRACRANIAL ART COMPL BI STUDY Alon Johnson MD [address] [place] [address] [facility] [address] [place] [address] Referral ID Status Reason Start Date Expiration Date Visits Requested Visits Authorized [id number] Authorized Auto-Generat ed Referral 07/10/2022 07/10/2023 1 1 [facility] Summary Purpose Family History No Family History Records FoundNo Family History Records FoundNo Family History Records Found Advance Directives No Advanced Directives Records FoundDocuments on File Type Date Recorded 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 [address] Molecular & Functional Imaging [address] [place] [address] Referral ID Status Reason Start Date Expiration Date V isits Requested Visits Authorized [id number] Closed PCP Requested Referral 01/10/2021 02/09/2022 3 3 Additional Source Comments INFORMATION SOURCE (unrecogn ized section and content) DATE CREATED AUTHOR 02/06/2022 [facility] DATE CREATED AUTHOR AUTHOR'S ORGANIZ ATION 11/17/2022 [facility] DATE CREATED AUTHOR AUTHOR'S ORGANIZ ATION 03/13/2024 [facility] Source Comments (unrecognize d section and content) In the event this informatio n is protected by the Federal Confidentiality of Alcohol and Drug Abuse Patient Records regulations: The Federal rules restrict any use of the information to criminally investigate or prosecute any alcohol or drug abuse patient.[facility] the event this information is protected by the Federal Confidentiality of Alcohol and Drug Abuse Patient Records regulations: The Federal rules restrict any use of the information to criminally investigate or prosecute any alcohol or drug abuse patient.[facility] the event this information is protected by the Federal Confidentiality of Alcohol and Drug Abuse Patient Records regulations: The Federal rules restrict any use of the information to criminally investigate or prosecute any alcohol or drug abuse patient.[facility] the event this information is protected by the Federal Confidentiality of Alcohol and Drug Abuse Patient Records regulations: The Federal rules restrict any use of the information to criminally investigate or prosecute any alcohol or drug abuse patient.[facility] the event this information is protected by the Federal Confidentiality of Alcohol and Drug Abuse Patient Records regulations: The Federal rules restrict any use of the information to criminally investigate or prosecute any alcohol or drug abuse patient.[facility] the event this information is protected by the Federal Confidentiality of Alcohol and Drug Abuse Patient Records regulations: The Federal rules restrict any use of the information to criminally investigate or prosecute any alcohol or drug abuse patient.[facility] Reason for Visit (unrecogniz ed section and content) Reason Comments Radiology [place] Specialty Diagnoses / Procedures Referred By Contac t Referred To Contact MOLECULAR & FUNCTIONAL IMAGING Diagnoses Encounter for preprocedural cardiovascular examination Cardiac arrhythmia, unspecified cardiac arrhythmia type Preop testing Bilateral carotid artery stenosis Procedures NM CARDIAC PERF STRESS/PHARM MYOCARDIAL IMAGING, MULTIPLE Brianna Schrader, REFRIGERATION HOUSEMAN.MARKETING CONTENT COORDINATOR [address] [place] [address] Molecular & Functional Imaging [address] [place] [address] Referral ID Status Reason Start Date Expiration Date V isits Requested Visits Authorized [id number] Closed PCP Requested Referral 01/10/2021 02/09/2022 3 3 Reason Comments Established Patient Care Teams (unrecognized sec tion and content) Gallery Or Museum Technician Relationship Specialty Start Date End Date Sebastian Cuello MD [address] [id number] PCP - General Family Practice 06/08/20 Sebastian Cuello MD [address] [phone] Referring Family Practice 06/08/20 Gallery Or Museum Technician Relationship Specialty Start Date End Date Sebastian Cuello MD [address] [id number] PCP - General Family Practice 06/08/20 Sebastian Cuello MD [address] [phone] Referring Family Practice 06/08/20 Gallery Or Museum Technician Relationship Specialty Start Date End Date Sebastian Cuello MD PCP - General Family Medicine 06/08/20 Sebastian Cuello MD Referring Family Medicine 06/08/20 Gallery Or Museum Technician Relationship Specialty Start Date End Date Sebastian Cuello MD PCP - General Family Medicine 06/08/20 Sebastian Cuello MD Referring Family Medicine 06/08/20 Gallery Or Museum Technician Relationship Specialty Start Date End Date Sebastian Cuello MD PCP - General Family Medicine 06/08/20 Sebastian Cuello MD Referring Family Medicine 06/08/20 Gallery Or Museum Technician Relationship Specialty Start Date End Date Sebastian Cuello MD PCP - [facility] Family Medicine 06/08/20 Sebastian Cuello MD Referring [...] BE BASED ON THE PRIMARY CLINICAL RECORDS. [facility]. provides no warranty or guarantee of the accuracy or completeness of information in this document.
--- NOTE | 2024-11-04 06:30 | NM_ITS ---
Patient Name: ASHLEY REYES MR#: [id number] : 1975 Exam Date: 11/04/2024 Ordering Doctor: DR Zac Cuello . RADIOLOGY REPORT PROCEDURE: NM SILVINA PERF SPECT REST STR COMPARISON: None. INDICATIONS: CHEST PAIN TECHNIQUE: Exam Description: Stress/Rest one day protocol gated SPECT Rest Imagin.7 mCi Tc-99m Cardiolite IV on 11/04/2024 Stress Imaging 31.5 mCi Tc-99m Cardiolite IV on 11/04/2024 Exercise Protocol: Kye Heart Rate (bpm): Rest: 64 Max: 150 PMHR: 88 Blood Pressure: Rest: 126/64 Max: 154/68 Exercise Time: Minutes: 4 Seconds: 45 Stage Reached: Stage: 2 Mets 5.1 Symptoms: Rest and peak stress ECG findings were non-diagnostic and the exercise portion of the study was Non-diagnostic per attending physician Dr. Gao . For more details please see separate cardiac stress test report. FINDINGS: QUALITY OF STUDY: Excellent. PERFUSION DEFECT: None. LOCATION: N/A SIZE: N/A. SEVERITY: N/A. TYPE: N/A. WALL MOTION: Normal. LV SIZE: Normal. 75 mL. TID / TCD: None; 1.0 LVEF: Normal. Calculated EF 61%. SUMMARY: Myocardial perfusion imaging study is NORMAL. CONCLUSION: 1. Normal nuclear medicine myocardial perfusion scan. Dictated by: Kana German M.D. on 11/05/2024 at 10:13 Approved by: Kana German M.D. on 11/05/2024 at 10:16
[2024-11-04 08:49] LABS: Basophils Absolute Auto 0.1 10^3/uL (0.0-0.1); Basophils Percent Auto 0.7 % (0.2-2.0); Eosinophils Absolute Auto 0.3 10^3/uL (0.0-0.7); Eosinophils Percent Auto 3.6 % (0.9-7.0); Hematocrit 42.8 % (36.0-48.0); Hemoglobin 13.7 g/dL (12.0-16.0); Immature Granulocytes Abs Auto 0.02 10^3/uL (0.00-0.03); Immature Granulocytes Pct Auto 0.2 % (0.0-0.5); Lymphocytes Absolute Auto 2.7 10^3/uL (1.2-3.8); Lymphocytes Percent Auto 32.6 % (20.5-60.0); Mean Corpuscular Hemoglobin 28.9 pg (26.7-34.0); Mean Corpuscular Volume 90.3 fL (81.0-99.0); Monocytes Absolute Auto 0.8 10^3/uL (0.3-0.8); Monocytes Percent Auto 9.5 % (1.7-12.0); Neutrophils Absolute Auto 4.4 10^3/uL (1.4-6.5); Neutrophils Percent Auto 53.4 % (43.0-75.0); Platelet Count 340 10^3/uL (150-450); Red Blood Count 4.74 10^6/uL (4.20-5.40); Red Cell Distribution Width 14.9 % (11.0-15.0); White Blood Count 8.3 10^3/uL (4.0-11.0)
[2024-11-04 09:19] LABS: Estimated Average Glucose 111 mg/dL; Glycohemoglobin A1C 5.5 % (4.5-6.2)
[2024-11-04 09:23] LABS: Alanine Aminotransferase 18 U/L (14-59); Albumin Globulin Ratio 1.1; Albumin Level 3.4 g/dL (3.4-5.0); Alkaline Phosphatase 92 U/L (46-116); Anion Gap 11.7; Aspartate Amino Transferase 10 U/L (15-37); BUN Creatinine Ratio 15.6; Bilirubin Total 0.5 mg/dL (0.2-1.0); Calcium 8.7 mg/dL (8.5-10.1); Carbon Dioxide 29.3 mmol/L (21.0-32.0); Chloride 107 mmol/L (98-107); Chol HDL Ratio 2.3; Cholesterol 171 mg/dL (<=200); Estimated GFR (African America >60 (>=60 mL/min/1.73m^2); Estimated GFR (Non-African Ame >60 (>=60 mL/min/1.73m^2); Globulin 3.1 g/dL; Glucose 92 mg/dL (74-106); HDL Cholesterol 74 mg/dL (40-60); Sodium 144 mmol/L (136-145); Thyroid Stimulating Hormone 1.533 uIU/mL (0.358-3.740); Total Protein 6.5 g/dL (6.4-8.2); Triglycerides 58 mg/dL (<=150); VLDL CHOLESTEROL 11.6 mg/dL
--- NOTE | 2024-11-04 09:53 | CT_ITS ---
[address] [address] Patient Name: ASHLEY REYES MRN: [id number] date: 1975 Sex: F Assigned Patient Location: [place] Current Patient Location: Accession/Order Number: [id number] Exam Date: 11/04/2024 09:56 Report Date: 11/05/2024 06:54 At the request of: SEBASTIAN PULLIAM Procedure: CT lung screening low-dose EXAMINATION: CT lung screening low-dose HISTORY: Well Adult COMPARISON: No relevant comparison available. TECHNIQUE: Axial, Coronal, and Sagittal images were created without the administration of IV contrast material. Dose reduction techniques were achieved by using automated exposure control and/or adjustment of mA and/or kV according to patient size and/or use of iterative reconstruction technique. FINDINGS: LUNGS: Scattered areas of pleural-based irregularities/scarring, predominantly involving the posterior lung apices and the anterior inferior aspect of the right upper lobe and middle lobe. 8 mm calcified granuloma within left upper lobe at level of hilum. No overtly suspicious nodules or significant emphysematous changes. PLEURA: No mass, effusion, or pneumothorax. VASCULATURE: No abnormality. KAYCEE: Calcified lymph nodes suggestive of chronic granulomatous disease. MEDIASTINUM: Calcified lymph nodes. CARDIAC: No enlargement, pericardial thickening, or pericardial effusion. Coronary Artery calcifications: Coronary calcifications are absent. AORTA: No aneurysm or dissection. CHEST WALL: No mass or axillary adenopathy BONES: No bone lesion or fracture. LIMITED ABDOMEN: No suspicious findings. Limited images of the upper abdomen. OTHER: Negative. CT/CT lung screening low-dose IMPRESSION: 1. Lung-RADS Category 3- Probably benign. Probably benign finding(s)- short term follow up suggested; includes nodules with a low likelihood of becoming a clinically active cancer. Six month LDCT. Electronically authenticated by: TREASURE GALE Date: 11/05/2024 06:54
--- NOTE | 2024-11-04 10:24 | PC.NURSE ---
Nursing Note Cardiac Stress Test Reviewed: Medication, allergies and patient history reviewed. Stress Test: [x ] Patient tolerated stress test well. [ ] Patient unable to tolerate walking on treadmill. Switched to Lexiscan stress test. [x ] No chest pain noted per patient [ ] Chest pain that resolved prior to leaving stress lab. [ ] No dyspnea noted. [x ] Dyspnea that resolved prior to leaving stress lab. [ x] Patient left stress lab asymptomatic and hemodynamically stable. [ ] Patient taken to the Emergency Room due to non-resolving symptoms following stress test. [x ] Patient achieved target heart rate. [ ] Patient unable to achieve target heart rate. [ ] Aminophylline administered as reversal agent to Lexiscan (Regadenoson). [ ] Nitro administered. Nursing Comments:
--- NOTE | 2024-11-05 06:14 | PM.STRESS ---
Stress Test Stress Test Requesting physician: Zca Cuello Procedure: Exercise Cardiolite stress test General Information: Reason for Stress Test: Dyspnea, chest pain Cardiac History and Risk Factors: Smoker, history of stroke Resting 12 - Lead Electrocardiogram: NSR 75 with PACs. Inverted T-waves in aVL Stress Test: Protocol: Kye protocol was followed, with injection of Cardiolite once target heart rate was achieved. Exercise capacity: Fair exercise capacity. Total exercise time of 4 minutes 45 seconds reached Kye stage 2 at 1.7 MPH, 12.1% grade, & 5.2 METs. Blood pressure: Initial: 126/64, Maximum: 154/68 Rate & rhythm: Patient remained in sinus rhythm during the exercise and recovery portions of the study.? The maximum heart rate was 150, which was 88% of the maximum predicted heart rate. ST-segments & T-waves: No significant changes when compared to the baseline EKG. Patient response/symptoms: Dyspnea was reported, but the ground source heat pump technician did not specify if this reproducible of the patient's chief complaint... Interpretation: Non-diagnostic study, though there was no electrocardiographical evidence of ischemia, the patient reported dyspnea, which is one of her chief complaints. However, the ground source heat pump technician neglected to specify or document whether or not the dyspnea was reproducible for her chief complaint which could be an anginal equivalent. Cardiolite imaging interpretation will be reported separately. Clinical correlation required.?
== END 2024-11-04 06:10 | disposition home or self-care (01) ==
LOC: NM 06:10
PROVIDERS: PCP Family Medicine; Visit Provider Family Medicine
DX: Z00.00 Encounter for general adult medical examination without abnormal findings (principal); R07.9 Chest pain, unspecified; R91.8 Other nonspecific abnormal finding of lung field
CPT/HCPCS: 36415; 71271; 78452; 80053; 80061; 83036; 83540; 84436; 84443; 84481; 85025; 93017; A9500